=== PATIENT | male | born 1980 | race Caucasian/White ===

== ENCOUNTER 2024-08-15 12:33 | Outpatient (CLI) | payer OTHER | END 2024-08-15 12:34 | disposition home or self-care (01) | LOC: SCSRAD 12:33 | PROVIDERS: ATTEND Family Medicine | DX: S69.91XA Unspecified injury of right wrist, hand and finger(s), initial encounter (principal); S62.634A Displaced fracture of distal phalanx of right ring finger, initial encounter for closed fracture ==